=== PATIENT | male | born 1975 | race Caucasian/White ===

== ENCOUNTER 2017-04-09 21:01 | Inpatient (IN) | payer MEDICARE ==
[2017-04-09 21:01] VITALS: BMI 43.5
[2017-04-09 21:37] LABS: BASO # 0.1 K/uL (0.0-0.2); BASO % 1.4 % (0.0-2.0); EOS # 0.1 K/uL (0.0-0.7); EOS % 1.2 % (0.0-4.0); HEMATOCRIT 47.3 % (35.0-51.0); LYMPH % 33.3 % (20.0-40.0); MEAN CELL VOLUME 86.8 fL (80.0-94.0); MEAN CORPUSCULAR HEMOGLOBIN 28.6 pg (27.0-31.0); MEAN PLATELET VOLUME 10.2 fL (7.2-11.7); MONO # 0.6 K/uL (0.0-0.8); MONO % 6.7 % (0.0-10.0); WHITE BLOOD COUNT 8.9 K/uL (4.8-10.8)
[2017-04-09 21:41] LABS: RBC URINE 4 /hpf (0-3); URINE BILIRUBIN NEGATIVE (NEGATIVE); URINE BLOOD NEGATIVE (NEGATIVE); URINE COLOR Yellow (YELLOW); URINE GLUCOSE (UA) NORMAL (Normal); URINE KETONE NEGATIVE (NEGATIVE); URINE LEUKOCYTE ESTERASE NEG Leu/uL (Negative); URINE PROTEIN NEGATIVE (NEGATIVE); URINE UROBILINOGEN NORMAL mg/dL (0.2-1.0); WBC URINE 3 /hpf (0-5)
[2017-04-09 21:56] LABS: CHLORIDE 105 mmol/L (98-107); POTASSIUM 4.1 mmol/L (3.6-5.2); SODIUM 145 mmol/L (132-148)
[2017-04-09 21:58] LABS: BILIRUBIN,TOTAL < 0.1 mg/dL (0.2-1.3); GFR AFRICAN-AMERICAN > 60
[2017-04-09 21:59] LABS: ALKALINE PHOSPHATASE 96 U/L (38-126); ALT/SGPT 50 U/L (21-72); AST/SGOT 23 U/L (17-59); BLOOD UREA NITROGEN 13 mg/dL (9-20); CARBON DIOXIDE 23 mmol/L (22-30); GLUCOSE,RANDOM 130 mg/dL (75-110); TOTAL PROTEIN 7.6 g/dL (6.3-8.3)
[2017-04-09 22:00] LABS: ALCOHOL SERUM < 10 mg/dl (0-10)
--- NOTE | 2017-04-09 22:55 | C.PDOC ---
History Of Present Illness 41 year old male with a history of schizophrenia was brought to the ED by EMS with complaints of increasing anxiety. Patient has had many prior psychiatric evaluations for similar complaints. He denies any physical complaints or homicidal ideations. Time Seen by Provider: 04/09/17 21:12 Chief Complaint (Nursing): Psychiatric Evaluation History Per: Patient History/Exam Limitations: no limitations Onset/Duration Of Symptoms: Unknown Current Symptoms Are (Timing): Still Present Associated Symptoms: Anxiety Involuntary Hold By: None Recent travel outside of the [place]: No Additional History Per: Prior Records Past Medical History Reviewed: Historical Data, Nursing Documentation, Vital Signs Vital Signs: Last Vital Signs Temp 98.6 F 04/09/17 21:12 Pulse 97 H 04/09/17 21:12 Resp 20 04/09/17 21:12 BP Pulse Ox 97 04/09/17 22:57 - Medical History PMH: Anxiety, Bipolar Disorder, Depression, Paranoia, Schizophrenia, Sleep Apnea - [facility] Procedures GROUP PSYCHOTHERAPY (07/22/15) INDIVID PSYCHOTHERAP NEC (05/14/15) INDIVIDUAL PSYCHOTHERAPY, SUPPORTIVE (07/22/15) OTHER GROUP THERAPY (05/14/15) PSYCHIAT DRUG THERAP NEC (01/10/15) Family History: States: Unknown Family Hx - Social History Hx Alcohol Use: No Hx Substance Use: No Review Of Systems Constitutional: Negative for: Fever, Chills Cardiovascular: Negative for: Chest Pain Respiratory: Negative for: Shortness of Breath Gastrointestinal: Negative for: Nausea, Vomiting, Abdominal Pain, Diarrhea Neurological: Negative for: Weakness, Numbness Psych: Positive for: Anxiety Physical Exam - Physical Exam Appears: Non-toxic, No Acute Distress, Other (Patient is a very large male. He is calm, cooperative, and pleasant. ) Skin: Warm, Dry Head: Atraumatic Eye(s): bilateral: Normal Inspection, PERRL, EOMI Oral Mucosa: Moist Neck: Supple Chest: Symmetrical, No Deformity Cardiovascular: Rhythm Regular Respiratory: Normal Breath Sounds, No Rhonchi, No Wheezing Gastrointestinal/Abdominal: Soft, No Tenderness, No Distention, No Guarding, No Rebound Neurological/Psych: Oriented x3 ED Course And Treatment - Laboratory Results Result Diagrams: 04/09/17 21:31 04/09/17 21:31 Lab Interpretation: Normal (tox neg, etoh neg.) O2 Sat by Pulse Oximetry: 97 Reevaluation Time: 22:55 Reassessment Condition: Unchanged (remains stable, comfortable) - Physician Consult Information Outcome Of Conversation: 2300: d/w Crisis, ok to admit to Dr. Shankar though pt requires CPAP for ORTEGA due to obesity and the cords for the CPAP machine are a suicide risk on the psych floor so pt should be adm to reg med floor for CPAP and adm to medicine [employer]. 2300: d/w Dr. Gomez- Medicine [employer]- ok to Med /Surg Obs. Disposition Doctor Will See Patient In The: Hospital Counseled Patient/Family Regarding: Studies Performed, Diagnosis - Disposition Disposition: HOSPITALIZED Disposition Time: 22:57 Condition: GOOD Forms: [employer] (Guatemalan) - Clinical Impression Clinical Impression: Schizophrenia, paranoid, chronic with acute exacerbation, Depression - Scribe Statement The provider has reviewed the documentation as recorded by the Scribe Leticia Purcell All medical record entries made by the Scribe were at my direction and personally dictated by me. I have reviewed the chart and agree that the record accurately reflects my personal performance of the history, physical exam, medical decision making, and the department course for this patient. I have also personally directed, reviewed, and agree with the discharge instructions and disposition.
[2017-04-10] MEDS: (Novolin R) Insulin Human Regular 100 units/ml vial SC SCH ×4 (08:31→22:00)
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
[2017-04-10] MEDS: Enoxaparin 40 mg Syringe SC SCH (12:32)
[2017-04-10 16:31] VITALS: RESP 20
--- NOTE | 2017-04-11 00:13 | CP.PCM.HP ---
History of Present Illness - History of Present Illness History of Present Illness: 41 Y/O HM MORBIDLY OBESE, ADMITTED WITH DEPRESSION AND HE IS ADMITTED TO MEDICAL FLOOR HE CAN'T USE HIS BIPEPE AT 5E, AND HE IS DEPRESSED, ON ONE TO ONE WATCH Present on Admission - Present on Admission Any Indicators Present on Admission: No History of DVT/PE: No History of Uncontrolled Diabetes: No Urinary Catheter: No Decubitus Ulcer Present: No Review of Systems - Psychiatric Psychiatric: Abnormal Sleep Pattern, Anhedonia, Anxiety, Change in Appetite, Difficulty Concentrating, Irritability Past Patient History - Infectious Disease Hx of Infectious Diseases: None - Tetanus Immunizations Tetanus Immunization: Unknown - Past Social History Smoking Status: Light Smoker < 10 Cigarettes Daily - CARDIAC Hx Hypertension: No - PULMONARY Hx Sleep Apnea: Yes - NEUROLOGICAL Hx Seizures: No - HEENT Hx HEENT Problems: No - RENAL Hx Chronic Kidney Disease: No - ENDOCRINE/METABOLIC Hx Endocrine Disorders: Yes Hx Diabetes Mellitus Type 2: Yes - HEMATOLOGICAL/ONCOLOGICAL Hx Human Immunodeficiency Virus (HIV): No - INTEGUMENTARY Hx Dermatological Problems: No - MUSCULOSKELETAL/RHEUMATOLOGICAL Hx Musculoskeletal Disorders: No Hx Falls: No - GASTROINTESTINAL Hx Gastrointestinal Disorders: No - GENITOURINARY/GYNECOLOGICAL Hx Sexually Transmitted Disorders: No - PSYCHIATRIC Hx Anxiety: Yes Hx Bipolar Disorder: Yes Hx Depression: Yes Hx Paranoia: Yes Hx Schizophrenia: Yes Hx Substance Use: No - SURGICAL HISTORY Hx Surgeries: Yes Hx Orthopedic Surgery: Yes (right leg) - ANESTHESIA Hx Anesthesia: Yes Meds Allergies/Adverse Reactions: Allergies Allergy/AdvReac Type Severity Reaction Status Date / Time carrot Allergy Verified 04/09/17 21:11 celery Allergy Verified 04/09/17 21:11 haloperidol [From Haldol] Allergy Verified 04/09/17 21:11 Penicillins Allergy Verified 04/09/17 21:11 risperidone [From Risperdal] Allergy Verified 04/09/17 21:11 Physical Exam - Constitutional Appears: Non-toxic, No Acute Distress - Head Exam Head Exam: ATRAUMATIC, NORMAL INSPECTION, NORMOCEPHALIC - Eye Exam Eye Exam: EOMI, Normal appearance, PERRL Pupil Exam: NORMAL ACCOMODATION - ENT Exam ENT Exam: Mucous Membranes Moist, Normal Exam - Neck Exam Neck exam: Positive for: Normal Inspection - Respiratory Exam Respiratory Exam: Decreased Breath Sounds, Clear to Auscultation Bilateral, NORMAL BREATHING PATTERN - Cardiovascular Exam Cardiovascular Exam: REGULAR RHYTHM, +S1, +S2 - GI/Abdominal Exam GI & Abdominal Exam: Normal Bowel Sounds - Exam Exam: NORMAL INSPECTION - Back Exam Back exam: NORMAL INSPECTION - Neurological Exam Neurological exam: Alert, CN II-XII Intact, Normal Gait, Oriented x3, Reflexes Normal Results - Vital Signs Recent Vital Signs: Last Vital Signs Temp 97.4 F L 04/10/17 15:00 Pulse 82 04/10/17 15:00 Resp 20 04/10/17 15:00 BP 99/69 L 04/10/17 15:00 Pulse Ox 96 04/10/17 15:00 - Labs Result Diagrams: 04/09/17 21:31 04/09/17 21:31 Assessment & Plan (1) Sleep apnea Status: Chronic Priority: High (2) Morbid obesity Status: Chronic Priority: Medium (3) Depression Status: Acute - Date & Time Date: 04/10/17
[2017-04-11] MEDS: (Novolin R) Insulin Human Regular 100 units/ml vial SC SCH ×3 (09:16→18:51)
[2017-04-11] MEDS: Enoxaparin 40 mg Syringe SC SCH (09:17)
[2017-04-11 16:18] VITALS: O2SAT 96
--- NOTE | 2017-04-11 23:30 | CP.PCM.PN ---
Subjective - Date & Time of Evaluation Date of Evaluation: 04/11/17 Time of Evaluation: 20:25 - Subjective Subjective: ON BIPEP, NO FEVER, NO SOB, NO CHEST PAIN, NO COUGH Objective - Vital Signs/Intake and Output Vital Signs (last 24 hours): Temp Pulse Resp BP Pulse Ox 98.4 F 88 20 122/73 96 04/11/17 15:00 04/11/17 15:00 04/11/17 15:00 04/11/17 15:00 04/11/17 15:00 Intake and Output: 04/11/17 04/12/17 18:59 06:59 Intake Total 350 Balance 350 - Medications Medications: Current Medications Benztropine Mesylate (Cogentin) 1 mg PO BID [facility] Last Admin: 04/11/17 18:47 Dose: 1 mg Enoxaparin Sodium (Lovenox) 40 mg SC DAILY [facility] Last Admin: 04/11/17 09:17 Dose: 40 mg Fluoxetine HCl (Prozac) 20 mg PO DAILY [facility] Last Admin: 04/11/17 09:19 Dose: 20 mg Fluphenazine HCl (Prolixin) 5 mg PO BID [facility] Last Admin: 04/11/17 18:47 Dose: 5 mg Insulin Human Regular (Novolin R) 0 unit SC [facility] PRN Reason: Protocol Last Admin: 04/11/17 18:51 Dose: Not Given Pneumococcal Polyvalent Vaccine (Pneumovax 23 Vaccine) 0.5 ml IM .ONCE ONE Stop: 04/12/17 14:01 Quetiapine Fumarate (Seroquel) 100 mg PO BID [facility] Last Admin: 04/11/17 18:47 Dose: 100 mg Sitagliptin Phosphate (Januvia) 25 mg PO DAILY [facility] Last Admin: 04/11/17 09:17 Dose: 25 mg - Constitutional Appears: Non-toxic, No Acute Distress - Head Exam Head Exam: ATRAUMATIC, NORMAL INSPECTION, NORMOCEPHALIC - Eye Exam Eye Exam: EOMI, Normal appearance - ENT Exam ENT Exam: Mucous Membranes Moist, Normal Exam - Neck Exam Neck Exam: Normal Inspection - Respiratory Exam Respiratory Exam: Clear to Ausculation Bilateral, NORMAL BREATHING PATTERN - GI/Abdominal Exam GI & Abdominal Exam: Soft, Normal Bowel Sounds - Rectal Exam Rectal Exam: NORMAL INSPECTION - Exam Exam: NORMAL INSPECTION Assessment and Plan (1) Sleep apnea Status: Chronic (2) Morbid obesity Status: Chronic (3) Depression Status: Acute
[2017-04-12] MEDS: (Novolin R) Insulin Human Regular 100 units/ml vial SC SCH ×4 (09:04→22:46)
[2017-04-12 09:19] VITALS: TEMP 98.1
[2017-04-12] MEDS: Enoxaparin 40 mg Syringe SC SCH (10:11)
--- NOTE | 2017-04-12 12:13 | PCM.PYCHPN ---
Psychiatric Progress Note - Psychiatric Progress Note Patient seen today, length of contact: 15 min Patient Chief Complaint: I am feeling much better Problems Identified/Issues Discussed: Patient seen and evaluated, chart reviewed and discussed with the nurse. Patient reports improvement in his mood but still reports somewhat irritability and agitation. However, he denies any feelings of hopelessness and helplessness and denies any suicidal ideation or homicidal ideation. He is taking medication and denies any side effects. He needs more time for stabilization. Supportive therapy and psychoeducation were given. Medication Change: Yes Medical Record Reviewed: Yes Mental Status Examination - Cognitive Function Orientation: Person, Place, Situation, Time Memory: Intact Attention: WNL Concentration: Poor Association: WNL Fund of Knowledge: Poor - Mood Mood: Anxious - Affect Affect: Broad - Speech Speech: Soft - Formal Thought Process Formal Thought Process: Paranoia - Suicidal Ideation Suicidal Ideation: No - Homicidal Ideation Homicidal Ideation: No Goal/Treatment Plan - Goal/Treatment Plan Need for Continued Stay: Discharge may exacerbated symptoms, Severe functional impairment Progress Toward Problem(s) and Goals/Treatment Plan: Schizoaffective disorder - depressed type CBT psychoeducation Support therapy, individual therapy con't fluoxetine 20mg po daily con't quetiapine 100mg po bid social work referral - after care planning by roro DM Continue prescribed medications (Sitagliptin 25mg po daily) COPD Conitnue BiPAP PRN Montior s/s - Smoking Cessation Smoking Cessation Initiated: No
[2017-04-12] MEDS ORDERED: Influenza Virus Vaccine 45 mcg/0.5 ml Syr IM ONE (14:00)
[2017-04-12] MEDS ORDERED: Pneumococcal 23-Valent Vaccine IM ONE (14:00)
--- NOTE | 2017-04-12 14:22 | CP.PCM.PN ---
Subjective - Date & Time of Evaluation Date of Evaluation: 04/12/17 Time of Evaluation: 13:00 - Subjective Subjective: Pt seen and examined today states feels better after taking new medications. denies any chest pain , sob, palpitations, dizziness, headache N/V/d No overnight events reported by RN Using CPAP at night for sleep apnea Objective - Vital Signs/Intake and Output Vital Signs (last 24 hours): Temp Pulse Resp BP Pulse Ox 98.1 F 73 20 109/73 96 04/12/17 08:00 04/12/17 08:00 04/12/17 08:00 04/12/17 08:00 04/12/17 08:00 Intake and Output: 04/12/17 04/12/17 06:59 18:59 Intake Total 350 Balance 350 - Medications Medications: Current Medications Benztropine Mesylate (Cogentin) 1 mg PO BID [facility] Last Admin: 04/12/17 10:11 Dose: 1 mg Enoxaparin Sodium (Lovenox) 40 mg SC DAILY [facility] Last Admin: 04/12/17 10:11 Dose: 40 mg Fluoxetine HCl (Prozac) 20 mg PO DAILY [facility] Last Admin: 04/12/17 10:11 Dose: 20 mg Fluphenazine HCl (Prolixin) 5 mg PO BID [facility] Last Admin: 04/12/17 10:11 Dose: 5 mg Insulin Human Regular (Novolin R) 0 unit SC [facility] PRN Reason: Protocol Last Admin: 04/12/17 13:15 Dose: Not Given Quetiapine Fumarate (Seroquel) 100 mg PO BID [facility] Last Admin: 04/12/17 10:11 Dose: 100 mg Sitagliptin Phosphate (Januvia) 25 mg PO DAILY [facility] Last Admin: 04/12/17 10:11 Dose: 25 mg - Constitutional Appears: Well, No Acute Distress - Respiratory Exam Respiratory Exam: Clear to Ausculation Bilateral, NORMAL BREATHING PATTERN - Cardiovascular Exam Cardiovascular Exam: REGULAR RHYTHM, +S1, +S2 - Neurological Exam Neurological Exam: Alert, Awake, Oriented x3 Assessment and Plan - Assessment and Plan (Free Text) Assessment: 41 yr old male admitted for Schizoaffective disorder / depressed type hx of sleep apnea D/W Dr. Shankar today, seen by Dr. Clayton today . patient can be transferred to 5 E today , patient can continue cpap in 5 E D/W Dr. Gomez, medically cleared for transfer to Discussed the plan with patient who understands and agrees with plan
--- NOTE | 2017-04-13 03:15 | CP.PCM.PN ---
Subjective - Date & Time of Evaluation Date of Evaluation: 04/12/17 Time of Evaluation: 20:30 - Subjective Subjective: FOR TRANSFER TO PSYCHE FLOOR, NO FEVER, NO SOB, DEPRESSED Objective - Vital Signs/Intake and Output Vital Signs (last 24 hours): Temp Pulse Resp BP Pulse Ox 98.1 F 73 20 109/73 96 04/12/17 08:00 04/12/17 08:00 04/12/17 08:00 04/12/17 08:00 04/12/17 08:00 - Medications Medications: Current Medications Benztropine Mesylate (Cogentin) 1 mg PO BID [facility] Last Admin: 04/12/17 18:22 Dose: 1 mg Enoxaparin Sodium (Lovenox) 40 mg SC DAILY [facility] Last Admin: 04/12/17 10:11 Dose: 40 mg Fluoxetine HCl (Prozac) 20 mg PO DAILY [facility] Last Admin: 04/12/17 10:11 Dose: 20 mg Fluphenazine HCl (Prolixin) 5 mg PO BID [facility] Last Admin: 04/12/17 18:22 Dose: 5 mg Insulin Human Regular (Novolin R) 0 unit SC [facility] PRN Reason: Protocol Last Admin: 04/12/17 16:38 Dose: Not Given Quetiapine Fumarate (Seroquel) 100 mg PO BID [facility] Last Admin: 04/12/17 18:22 Dose: 100 mg Sitagliptin Phosphate (Januvia) 25 mg PO DAILY [facility] Last Admin: 04/12/17 10:11 Dose: 25 mg - Constitutional Appears: Non-toxic, No Acute Distress - Head Exam Head Exam: ATRAUMATIC, NORMAL INSPECTION, NORMOCEPHALIC - Eye Exam Eye Exam: EOMI, Normal appearance, PERRL Pupil Exam: NORMAL ACCOMODATION - ENT Exam ENT Exam: Mucous Membranes Moist, Normal Exam, Normal Oropharynx, TM's Normal Bilaterally - Neck Exam Neck Exam: Normal Inspection - Respiratory Exam Respiratory Exam: Decreased Breath Sounds, Clear to Ausculation Bilateral, NORMAL BREATHING PATTERN - Cardiovascular Exam Cardiovascular Exam: REGULAR RHYTHM, +S1, +S2 - GI/Abdominal Exam GI & Abdominal Exam: Soft, Normal Bowel Sounds - Neurological Exam Neurological Exam: Alert, Awake, CN II-XII Intact, Normal Gait, Oriented x3 Assessment and Plan (1) Sleep apnea Status: Chronic (2) Morbid obesity Status: Chronic (3) Depression Status: Acute
[2017-04-13 07:30] LABS: BASO # 0.1 K/uL (0.0-0.2); BASO % 1.2 % (0.0-2.0); EOS # 0.1 K/uL (0.0-0.7); EOS % 1.4 % (0.0-4.0); HEMATOCRIT 46.6 % (35.0-51.0); LYMPH % 31.9 % (20.0-40.0); MEAN CELL VOLUME 85.9 fL (80.0-94.0); MEAN CORPUSCULAR HEMOGLOBIN 28.7 pg (27.0-31.0); MEAN CORPUSCULAR HGB CONC 33.4 g/dL (33.0-37.0); MEAN PLATELET VOLUME 10.1 fL (7.2-11.7); MONO # 0.6 K/uL (0.0-0.8); MONO % 6.9 % (0.0-10.0); NRBC % 0.1 % (0.0-2.0); RED CELL DISTRIBUTION WIDTH 14.7 % (11.5-14.5); WHITE BLOOD COUNT 9.4 K/uL (4.8-10.8)
[2017-04-13] MEDS: (Novolin R) Insulin Human Regular 100 units/ml vial SC SCH (07:45)
[2017-04-13 07:47] LABS: BLOOD UREA NITROGEN 15 mg/dL (9-20); CALCIUM 8.4 mg/dl (8.6-10.4); CARBON DIOXIDE 23 mmol/L (22-30); CHLORIDE 105 mmol/L (98-107); GFR AFRICAN-AMERICAN > 60; GLUCOSE,RANDOM 105 mg/dL (75-110); SODIUM 140 mmol/L (132-148)
[2017-04-13 08:29] VITALS: BP 128/76; PULSE 85
[2017-04-13] MEDS: Enoxaparin 40 mg Syringe SC SCH (09:31)
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
--- NOTE | 2017-04-14 01:40 | CP.PCM.PN ---
Subjective - Date & Time of Evaluation Date of Evaluation: 04/13/17 Time of Evaluation: 20:33 - Subjective Subjective: feels better,tolerated bipep, no sob, no chest pain Objective - Vital Signs/Intake and Output Vital Signs (last 24 hours): Temp Pulse Resp BP Pulse Ox 98.1 F 85 20 128/76 96 04/13/17 08:28 04/13/17 08:28 04/13/17 08:28 04/13/17 08:28 04/12/17 08:00 - Labs Labs: 04/13/17 07:12 04/13/17 07:12 - Constitutional Appears: Non-toxic, No Acute Distress - Head Exam Head Exam: NORMAL INSPECTION, NORMOCEPHALIC - Eye Exam Eye Exam: Normal appearance Pupil Exam: NORMAL ACCOMODATION - ENT Exam ENT Exam: Mucous Membranes Moist, Normal Exam - Neck Exam Neck Exam: Normal Inspection - Respiratory Exam Respiratory Exam: Clear to Ausculation Bilateral, Wheezes - Cardiovascular Exam Cardiovascular Exam: REGULAR RHYTHM - GI/Abdominal Exam GI & Abdominal Exam: Soft, Normal Bowel Sounds Assessment and Plan (1) Sleep apnea Status: Chronic (2) Morbid obesity Status: Chronic (3) Depression Status: Acute
== END 2017-04-13 11:15 | disposition home or self-care (01) | DRG 885 ==
LOC: C.ER 21:01 → C.9E 22:52 → C.3T 23:49 → OBSVTOIN 04-10 17:24 → C.3T 04-12 00:12 → C.5E 04-12 16:42
PROVIDERS: ADMIT Internal Medicine; ATTEND Internal Medicine
DX: F25.9 Schizoaffective disorder, unspecified (principal); E11.9 Type 2 diabetes mellitus without complications; G47.30 Sleep apnea, unspecified

== ENCOUNTER 2017-07-20 17:08 | Emergency (ER) | payer MEDICARE ==
[2017-07-20 17:37] VITALS: BMI 46.8
[2017-07-20 18:10] LABS: BASO # 0.1 K/uL (0.0-0.2); BASO % 1.1 % (0.0-2.0); EOS # 0.1 K/uL (0.0-0.7); EOS % 1.1 % (0.0-4.0); HEMATOCRIT 43.7 % (35.0-51.0); LYMPH # 2.5 K/uL (1.0-4.3); LYMPH % 35.4 % (20.0-40.0); MEAN CELL VOLUME 86.8 fL (80.0-94.0); MEAN CORPUSCULAR HEMOGLOBIN 29.1 pg (27.0-31.0); MEAN CORPUSCULAR HGB CONC 33.5 g/dL (33.0-37.0); MEAN PLATELET VOLUME 9.9 fL (7.2-11.7); MONO # 0.5 K/uL (0.0-0.8); MONO % 6.6 % (0.0-10.0); NRBC % 0.1 % (0.0-2.0); RED CELL DISTRIBUTION WIDTH 14.7 % (11.5-14.5)
[2017-07-20 18:14] LABS: RBC URINE < 1 /hpf (0-3); URINE BACTERIA RARE (<OCC); URINE BILIRUBIN NEGATIVE (NEGATIVE); URINE BLOOD NEGATIVE (NEGATIVE); URINE COLOR Yellow (YELLOW); URINE GLUCOSE (UA) NORMAL (Normal); URINE KETONE NEGATIVE (NEGATIVE); URINE LEUKOCYTE ESTERASE NEG Leu/uL (Negative); URINE PROTEIN NEGATIVE (NEGATIVE); URINE UROBILINOGEN NORMAL mg/dL (0.2-1.0); WBC URINE < 1 /hpf (0-5)
[2017-07-20 18:25] LABS: ALCOHOL SERUM < 10 mg/dl (0-10); ALKALINE PHOSPHATASE 85 U/L (38-126); ALT/SGPT 58 U/L (21-72); AST/SGOT 27 U/L (17-59); BILIRUBIN,TOTAL 0.4 mg/dL (0.2-1.3); BLOOD UREA NITROGEN 14 mg/dL (9-20); CALCIUM 8.6 mg/dl (8.6-10.4); CARBON DIOXIDE 24 mmol/L (22-30); CHLORIDE 105 mmol/L (98-107); GFR AFRICAN-AMERICAN > 60; GLUCOSE,RANDOM 108 mg/dL (75-110); POTASSIUM 3.5 mmol/L (3.6-5.2); SODIUM 138 mmol/L (132-148); TOTAL PROTEIN 8.1 g/dL (6.3-8.3)
--- NOTE | 2017-07-20 18:32 | C.PDOC ---
History Of Present Illness 41 y/o male with PMHx of Schizophrenia presents to ED stating that he is unhappy at [facility] because he is jainism and they are [employer]. Patient denies suicidal or homicidal ideation. No other complaints at this time. Time Seen by Provider: 07/20/17 17:46 Chief Complaint (Nursing): Psychiatric Evaluation History Per: Patient History/Exam Limitations: no limitations Onset/Duration Of Symptoms: Days Current Symptoms Are (Timing): Still Present Suicide/Self Injury Attempted (Context): None Modifying Factor(s): None Past Medical History Reviewed: Historical Data, Nursing Documentation, Vital Signs Vital Signs: Last Vital Signs Temp 98.2 F 07/20/17 19:45 Pulse 82 07/20/17 19:45 Resp 18 07/20/17 19:45 BP 135/86 07/20/17 19:45 Pulse Ox 98 07/20/17 19:45 - Medical History PMH: Anxiety, Bipolar Disorder, Depression, Paranoia, Schizophrenia, Sleep Apnea Surgical History: No Surg Hx - [facility] Procedures GROUP PSYCHOTHERAPY (07/22/15) INDIVID PSYCHOTHERAP NEC (05/14/15) INDIVIDUAL PSYCHOTHERAPY, SUPPORTIVE (07/22/15) OTHER GROUP THERAPY (05/14/15) PSYCHIAT DRUG THERAP NEC (01/10/15) Family History: States: No Known Family Hx - Social History Hx Alcohol Use: No Hx Substance Use: No Review Of Systems Constitutional: Negative for: Fever, Chills Cardiovascular: Negative for: Chest Pain Respiratory: Negative for: Shortness of Breath Gastrointestinal: Negative for: Nausea, Vomiting Skin: Negative for: Rash Psych: Negative for: Anxiety, Suicidal ideation Physical Exam - Physical Exam Appears: Non-toxic, No Acute Distress, Other (Coherent, bizarre, morbidly obese) Skin: Warm, Dry Head: Atraumatic, Normacephalic Eye(s): bilateral: Normal Inspection Oral Mucosa: Moist Chest: Symmetrical Cardiovascular: Rhythm Regular Respiratory: No Rales, No Rhonchi, No Wheezing Gastrointestinal/Abdominal: Soft, No Tenderness, No Guarding, No Rebound Neurological/Psych: Oriented x3 ED Course And Treatment - Laboratory Results Result Diagrams: 07/20/17 18:07 07/20/17 18:07 Lab Interpretation: Normal (tox/etoh neg) O2 Sat by Pulse Oximetry: 97 (RA) Pulse Ox Interpretation: Normal Progress Note: pt had conversation w Crisis Guest Attendant- ok to f/u as opt. outpatient resources given Medical Decision Making Medical Decision Making: baseline schizoaffective Disposition Doctor Will See Patient In The: Office Counseled Patient/Family Regarding: Studies Performed, Diagnosis - Disposition Referrals: [facility] [Outside] [facility] [Outside] [facility] [Outside] Disposition: HOME/ ROUTINE Disposition Time: 18:31 Condition: GOOD Additional Instructions: continue outpatient eval and follow-up with Psych services and follow-up resources as given. Instructions: Schizophrenia (ED) Forms: [employer] (Kittitian) - Clinical Impression Clinical Impression: Schizoaffective disorder - Scribe Statement The provider has reviewed the documentation as recorded by the Scribbritney Vital All medical record entries made by the Pedroibbritney were at my direction and personally dictated by me. I have reviewed the chart and agree that the record accurately reflects my personal performance of the history, physical exam, medical decision making, and the department course for this patient. I have also personally directed, reviewed, and agree with the discharge instructions and disposition.
[2017-07-20 19:45] VITALS: BP 135/86; PULSE 82; RESP 18; TEMP 98.2
[2017-07-20 23:44] VITALS: O2SAT 97
== END 2017-07-20 19:45 | disposition home or self-care (01) ==
LOC: C.ER 17:08
DX: F25.9 Schizoaffective disorder, unspecified (principal)
CPT/HCPCS: 80053; 81001; 85025; 99284; G0480